=== PATIENT | female | born 1995 | race African-American/Black ===

== ENCOUNTER 2018-01-25 04:30 | Emergency (ER) | payer SELFPAY ==
--- NOTE | 2018-01-25 05:04 | ER Document Report ---
HPI - HPI Patient complains to provider of: fever, sore throat Pain Level: 3 Context: Patient is a 22-year-old female that comes emergency department for chief complaint of a sore throat for the past 3 days and this morning she had chills and sweats. She denies cough, congestion, difficulty breathing. She denies any obvious sick contacts. She takes no daily medications. She denies any medical history. LMP within the past month. - REPRODUCTIVE Reproductive: DENIES: : Past Medical History - General Information source: Patient, Parent - Social History Smoking Status: Never Smoker Frequency of alcohol use: None Drug Abuse: None Lives with: Family Family History: Reviewed & Not Pertinent Pulmonary Medical History: Reports: Hx Asthma Psychiatric Medical History: Reports: Hx Attention Deficit Hyperactivity Disorder Surgical Hx: Negative - Immunizations Immunizations up to date: Yes Hx Diphtheria, Pertussis, Tetanus Vaccination: Yes Vertical Provider Document - CONSTITUTIONAL General Appearance: WD/WN, Obese - INFECTION CONTROL TRAVEL OUTSIDE OF THE [place] IN LAST 30 DAYS: No - HEENT HEENT: Atraumatic, Normocephalic. negative: Normal ENT Exam - Bilateral exudative pharyngitis with tonsillitis, no evidence of peritonsillar abscess, normal uvula, no airway compromise, normal tongue - NECK Neck: Other - Minimal tenderness over the anterior cervical areas but no overt adenopathy noted - RESPIRATORY Respiratory: Breath Sounds Normal, No Respiratory Distress - CARDIOVASCULAR Cardiovascular: Regular Rate, Regular Rhythm - GI/ABDOMEN Gastrointestinal: Abdomen Soft. negative: Abdomen Non-Tender - Tenderness in the left upper quadrant and questionably palpable spleen, otherwise soft and benign abdomen, no guarding - BACK Back: Normal Inspection - NEURO Level of Consciousness: Awake, Alert, Appropriate - DERM Integumentary: Warm, Dry, No Rash Course - Re-evaluation Re-evalutation: Patient well-appearing, alert, no distress, handle secretions without difficulty , no evidence of airway compromise. Exam shows exudative pharyngitis, strep is negative, patient has left upper quadrant pain and questionably palpable spleen. No evidence of ruptured spleen based on benign abdominal exam and appearance. Suspect patient has mononucleosis. Patient was given dexamethasone , discussed treatment, expectations, follow-up, return precautions, patient and mother state understanding and agreement. - Vital Signs Vital signs: Temp Pulse Resp BP Pulse Ox 99.7 F 104 H 18 123/72 95 01/25/18 04:36 01/25/18 04:36 01/25/18 04:36 01/25/18 04:36 01/25/18 04:36 Discharge - Discharge Clinical Impression: Sore throat Fever Qualifiers: Fever type: unspecified Qualified Code(s): R50.9 - Fever, unspecified Condition: Stable Disposition: HOME, SELF-CARE Additional Instructions: Your strep test is negative. Your symptoms and examination are consistent with mononucleosis. You have been treated with dexamethasone, you can take the Toradol if needed for pain, you can take Tylenol as well, drink plenty fluids, rest. See additional instructions below. Follow-up with primary care. Return for any concerning symptoms. Mononucleosis You have been diagnosed as having mononucleosis ("mono"). This is a viral infection which can last several weeks. Typically, a week or two of tiredness precedes a sore throat, swollen glands, fever, and aches. Sometimes there's a rash. In severe cases, swollen spleen and liver develop. There is no cure for mononucleosis. You should rest, drink plenty of fluids, and avoid contact sports until you are better. A follow-up examination is usually done in about a week. Further laboratory testing may be necessary then. See the doctor if there is significant worsening of the symptoms or onset of new symptoms such as severe headache, stiff neck, generalized abdominal pain , or faintness. Prescriptions: Ketorolac Tromethamine [Toradol 10 mg Tablet] 10 mg PO Q8HP PRN #24 tablet PRN Reason: Forms: Return to Work
[2018-01-25] MEDS ORDERED: IBUPROFEN 800 MG TABLET PO ONE (05:58)
[2018-01-25] MEDS ORDERED: DEXAMETHASONE SOD PHOS INJ 10 MG/1 ML VIAL IM ONE (06:16)
[2018-01-25 06:45] VITALS: BP 121/65
== END 2018-01-25 06:43 | disposition home or self-care (01) ==
LOC: ER 04:30
DX: J02.9 Acute pharyngitis, unspecified (principal); R50.9 Fever, unspecified; E66.9 Obesity, unspecified
CPT/HCPCS: 99283; 96372; 87070; 87880; J1100

== ENCOUNTER 2018-04-20 22:50 | Emergency (ER) | payer SELFPAY ==
[2018-04-21] MEDS ORDERED: ACETAMINOPHEN 325 MG TABLET PO ONE (00:49)
--- NOTE | 2018-04-21 00:54 | ER Document Report ---
ED Medical Screen (RME) - General Chief Complaint: Fever Stated Complaint: FEVER Time Seen by Provider: 04/21/18 00:49 Mode of Arrival: Ambulatory Information source: Patient Notes: Patient is a 23-year-old female who presents with chief complaint of fever and sore throat since Friday. Patient reports that several years ago she had tonsillitis and patient reports this feels similar. Patient has not had anything for her fever. Exam: Nares patent, oropharynx clear without exudates. 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 Moist mucous membranes. Patient speaking in full and complete sentences within normal voice. I have greeted and performed a rapid initial assessment of this patient. A comprehensive ED assessment and evaluation of the patient, analysis of test results and completion of the medical decision making process will be conducted by additional ED providers. Dictation of this chart was performed using voice recognition software; therefore, there may be some unintended grammatical errors. TRAVEL OUTSIDE OF THE [place] IN LAST 30 DAYS: No - Related Data Allergies/Adverse Reactions: iodine Allergy (Verified 01/25/18 04:32) Shellfish * [Shellfish] Allergy (Verified 01/25/18 04:32) Past Medical History Pulmonary Medical History: Reports: Hx Asthma Renal/ Medical History: Denies: Hx Peritoneal Dialysis Psychiatric Medical History: Reports: Hx Attention Deficit Hyperactivity Disorder - Immunizations Immunizations up to date: Yes Hx Diphtheria, Pertussis, Tetanus Vaccination: Yes
[2018-04-21 02:20] VITALS: BP 118/73
--- NOTE | 2018-04-21 02:29 | ER Document Report ---
ED Fever - General Chief Complaint: Fever Stated Complaint: FEVER Time Seen by Provider: 04/21/18 00:49 Mode of Arrival: Ambulatory Notes: Patient is a 23-year-old female who presents with chief complaint of fever and sore throat since Friday. Patient reports that several years ago she had tonsillitis and patient reports this feels similar. Patient has not had anything for her fever. TRAVEL OUTSIDE OF THE [place] IN LAST 30 DAYS: No - Related Data Allergies/Adverse Reactions: iodine Allergy (Verified 01/25/18 04:32) Shellfish * [Shellfish] Allergy (Verified 01/25/18 04:32) Past Medical History - General Information source: Patient - Social History Smoking Status: Never Smoker Chew tobacco use (# tins/day): No Frequency of alcohol use: None Drug Abuse: None Family History: Reviewed & Not Pertinent Patient has suicidal ideation: No Patient has homicidal ideation: No Pulmonary Medical History: Reports: Hx Asthma Renal/ Medical History: Denies: Hx Peritoneal Dialysis Psychiatric Medical History: Reports: Hx Attention Deficit Hyperactivity Disorder - Immunizations Immunizations up to date: Yes Hx Diphtheria, Pertussis, Tetanus Vaccination: Yes Review of Systems - Review of Systems Constitutional: See HPI EENT: See HPI Cardiovascular: No symptoms reported Respiratory: No symptoms reported Gastrointestinal: No symptoms reported Genitourinary: No symptoms reported Female Genitourinary: No symptoms reported Musculoskeletal: No symptoms reported Skin: No symptoms reported Hematologic/Lymphatic: No symptoms reported Neurological/Psychological: No symptoms reported Physical Exam - Vital signs Vitals: Temp Pulse Resp Pulse Ox 102.7 F H 106 H 20 96 04/21/18 00:59 04/21/18 00:59 04/21/18 00:59 04/21/18 00:59 - Notes Notes: PHYSICAL EXAMINATION: GENERAL: Well-appearing, well-nourished and in no acute distress. HEAD: Atraumatic, normocephalic. EYES: Pupils equal round extraocular movements intact, conjunctiva are normal. ENT: Nares patent, oropharynx clear and without exudates. 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 NECK: Normal range of motion LUNGS: No respiratory distress Musculoskeletal: Normal range of motion NEUROLOGICAL: Normal speech, normal gait. PSYCH: Normal mood, normal affect. SKIN: Warm, Dry, normal turgor, no rashes or lesions noted. Course - Re-evaluation Re-evalutation: Patient's examination is unremarkable. Patient's fever is resolved after administration of antipyretics. Rapid strep is negative. Likely viral pharyngitis. Patient will be discharged home in stable condition. - Vital Signs Vital signs: Temp Pulse Resp BP Pulse Ox 99.9 F 88 20 118/73 96 04/21/18 02:19 04/21/18 02:19 04/21/18 00:59 04/21/18 02:19 04/21/18 02:19 Discharge - Discharge Clinical Impression: Sore throat Fever Qualifiers: Fever type: unspecified Qualified Code(s): R50.9 - Fever, unspecified Condition: Stable Disposition: HOME, SELF-CARE Additional Instructions: SORE THROAT: Sore throats may be caused by viruses, bacteria, or fungi. Most are due to a virus, and must get better on their own. Bacterial sore throats, particularly those due to "strep," need treatment with antibiotics. If an antibiotic is prescribed, be sure to take the medication for a full 10 days. Failure to take the antibiotic can result in complications such as rheumatic fever. Sometimes, an injection of antibiotics is given instead of pills or liquid. This single "shot" is equal in effectiveness to the oral medication. To relieve symptoms, take acetaminophen for pain. Sip clear liquids frequently, or eat popsicles or ice chips. Anesthetic sprays or lozenges may help. Make sure the air in the room is not too dry. Avoid using decongestants or antihistamines. Call the doctor if there is no improvement in two days, or if you have difficulty breathing, increasing throat pain, high fever, rash, or frequent vomiting. FOLLOW-UP CARE: If you have been referred to a physician for follow-up care, call the physician s office for an appointment as you were instructed or within the next two days. If you experience worsening or a significant change in your symptoms, notify the physician immediately or return to the Emergency Department at any time for re-evaluation. Forms: Return to Work
== END 2018-04-21 03:01 | disposition home or self-care (01) ==
LOC: ER 22:50
DX: J02.9 Acute pharyngitis, unspecified (principal); R50.9 Fever, unspecified; Z91.013 Allergy to seafood
CPT/HCPCS: 87070; 87880; 99283